=== PATIENT | female | born 1945 | race Caucasian/White ===

== ENCOUNTER 2022-01-08 12:32 | Emergency (ER) | payer MEDICARE ==
[~2022-01-08] VITALS: Ht 157.5 cm; Wt 69.9 kg
[~2022-01-08 12:32] MED LIST: FERS325 PO; PANT40TA PO
[2022-01-08] MEDS ORDERED: CYCLOBENZAPRINE HCL 10 MG TABLET PO ONE (13:30)
[2022-01-08] MEDS ORDERED: TETANUS/DIPHTHERIA TOXOID [ADULT] 0.5 ML VIAL IM ONE (13:30)
[2022-01-08] MEDS ORDERED: ACETAMINOPHEN 500 MG TABLET PO ONE (13:30)
[2022-01-08 14:09] LABS: BASOPHILS % (AUTO) 0.8 % (0.0-5.0); EOSINOPHILS % (AUTO) 5.1 % (0.0-8.0); HEMATOCRIT 40.6 % (36-48); LYMPHOCYTES % (AUTO) 25.2 % (21.0-51.0); MEAN CORPUSCULAR HGB CONC 31.8 g/dL (32.0-36.0); MEAN CORPUSCULAR VOLUME 94.4 fL (79-99); MONOCYTES % (AUTO) 9.4 % (3.0-13.0); NEUTROPHILS % (AUTO) 59.3 % (40.0-77.0); PLATELET COUNT (AUTO) 201 K/uL (130-400); WHITE BLOOD COUNT (AUTO) 6.1 K/uL (4.8-10.8)
[2022-01-08 14:22] LABS: CREATININE 0.7 mg/dL (0.5-1.5); POTASSIUM 3.9 mmol/L (3.5-5.1)
[2022-01-08 14:26] LABS: ALBUMIN 3.8 g/dL (3.5-5.0); BILIRUBIN,TOTAL 0.5 mg/dL (0.2-1.0); TOTAL PROTEIN, SERUM 7.1 g/dL (6.0-8.3)
[2022-01-08] MEDS ORDERED: CYCL10TA16 PO (14:41)
[2022-01-08] MEDS ORDERED: ACET-2247 PO (14:41)
[2022-01-08 14:57] VITALS: BP 151/61
== END 2022-01-08 15:17 | disposition home or self-care (01) ==
LOC: EDH 12:32
DX: S00.83XA Contusion of other part of head, initial encounter (principal); S16.1XXA Strain of muscle, fascia and tendon at neck level, initial encounter; I10 Essential (primary) hypertension; Z88.5 Allergy status to narcotic agent; Z79.899 Other long term (current) drug therapy; Z90.89 Acquired absence of other organs; W10.8XXA Fall (on) (from) other stairs and steps, initial encounter; Y93.89 Activity, other specified; Y92.89 Other specified places as the place of occurrence of the external cause; Y99.8 Other external cause status
CPT/HCPCS: 36415; 70450; 70486; 71045; 72125; 80053; 84484; 85025; 90471; 90714; 93005

== ENCOUNTER 2022-02-26 15:00 | Observation (INO) | payer MEDICARE ==
[~2022-02-26] VITALS: Ht 157.5 cm; Wt 69.6 kg
[2022-02-26 10:33] LABS: EOSINOPHILS % (AUTO) 4.8 % (0.0-8.0); HEMATOCRIT 42.5 % (36-48); LYMPHOCYTES % (AUTO) 34.8 % (21.0-51.0); MEAN CORPUSCULAR HEMOGLOBIN 30.1 pg (27.0-33.0); MEAN CORPUSCULAR HGB CONC 32.5 g/dL (32.0-36.0); MEAN CORPUSCULAR VOLUME 92.8 fL (79-99); MONOCYTES % (AUTO) 10.4 % (3.0-13.0); NEUTROPHILS % (AUTO) 48.8 % (40.0-77.0); PLATELET COUNT (AUTO) 206 K/uL (130-400); RED BLOOD CELL COUNT(AUTO) 4.58 MIL/uL (4.00-5.50); RED CELL DISTRIBUTION WIDTH 13.2 % (11.0-15.5); WHITE BLOOD COUNT (AUTO) 6.2 K/uL (4.8-10.8)
[2022-02-26 10:41] LABS: CREATININE 0.8 mg/dL (0.5-1.5); POTASSIUM 4.3 mmol/L (3.5-5.1)
[~2022-02-26 15:00] MED LIST changes: +AEC81 PO; +ALPRAZOLAM PO; +ATOR10 PO; +BIOT5000 PO; +CALCIUM PO; +CHROMIUM PICOLINATE PO; -FERS325 PO; +GABA-533 PO; +GINK60CA2 PO; +GLUC15006 PO; +LISI10TA24 PO; +MVIT PO; -PANT40TA PO; +POLY1GRA MC; +TRAM100T40 PO; +VITA1CAP85 PO; +VITAMIN D3 PO; +ZINC50TA71 PO
[2022-02-27] VITALS (25 sets, daily range): BP systolic 141–191; BP diastolic 49–90
[2022-02-27] MEDS: CEFAZOLIN SODIUM 1 GM VIAL IVP SCH ×2 (06:00→09:30)
[2022-02-27] MEDS ORDERED: LACTATED RINGERS 1000ML 1,000 ML IV ONE (07:05)
[2022-02-27] MEDS ORDERED: MIDAZOLAM HCL 1 MG/ML 2ML VIAL ONE ×2 (07:24→08:08)
[2022-02-27] MEDS ORDERED: LIDOCAINE PF 100MG/5ML (2%) SYRINGE 5ML ONE (08:07)
[2022-02-27] MEDS ORDERED: SUCCINYLCHOLINE CHLORIDE 20 MG/ML 10 ML VIAL ONE (08:07)
[2022-02-27] MEDS ORDERED: NEOSTIGMINE 5MG/5ML SYR IV ONE (08:08)
[2022-02-27] MEDS ORDERED: GLYCOPYRROLATE 1 MG/5 ML SYRINGE ONE (08:08)
[2022-02-27] MEDS ORDERED: ROCURONIUM 10MG/1ML SYR 10 MG/ML ML ONE (08:08)
[2022-02-27] MEDS ORDERED: PROPOFOL 10 MG/ML 20ML VIAL IV ONE (08:08)
[2022-02-27] MEDS ORDERED: DEXAMETHASONE SOD PHOSPHATE 10MG/ML 1ML VIAL ONE ×2 (08:08→08:10)
[2022-02-27] MEDS ORDERED: ONDANSETRON 4MG INJ ONE ×2 (08:08→13:09)
[2022-02-27] MEDS ORDERED: FENTANYL CITRATE PF 50 MCG/1 ML 2ML VIAL ONE ×3 (08:09→10:55)
[2022-02-27] MEDS ORDERED: ATROPINE 1MG SYG IVP ONE (08:22)
[2022-02-27] MEDS ORDERED: MIDAZOLAM HCL 1 MG/ML 2ML VIAL IVPB ONE (08:30)
[2022-02-27] MEDS ORDERED: THROMBIN-JMI 20000 UNIT KIT TP ONE (09:20)
[2022-02-27] MEDS ORDERED: BUPIVACAINE/EPI/PF 0.25% 30ML VIAL IJ ONE (09:20)
[2022-02-27] MEDS ORDERED: CEFAZOLIN SODIUM 1 GM VIAL ONE (09:20)
[2022-02-27] MEDS ORDERED: MANNITOL 20% 500ML BAG 500 ML IV ONE (09:21)
[2022-02-27] MEDS ORDERED: ARTIFICIAL TEARS 3.5 GM OINTMENT ONE (10:03)
[2022-02-27] MEDS: DEXAMETHASONE SOD PHOSPHATE 4 MG/ML 1ML VIAL IVP SCH ×2 (13:00→18:20)
[2022-02-27] MEDS ORDERED: CEFAZOLIN SODIUM 1 GM VIAL IVP SCH ×2 (13:00→17:00)
[2022-02-27] MEDS ORDERED: PROMETHAZINE HCL 25 MG/ML 1ML AMPULE IM PRN (13:00)
[2022-02-27] MEDS ORDERED: NON-FORMULARY MEDICATION 1 EACH (Tramadol HCl 100 MG) PO PRN (13:00)
[2022-02-27] MEDS ORDERED: HYDROCODONE/ACETAMINOPHEN 5/325 MG TAB PO PRN (13:00)
[2022-02-27] MEDS: LACTATED RINGERS 1000ML 1,000 ML IV SCH (13:00)
[2022-02-27] MEDS ORDERED: MORPHINE 2 MG SYG IVP PRN (13:00)
[2022-02-27] MEDS ORDERED: 0.9%NACL 10ML VIAL IVP PRN (13:00)
[2022-02-27] MEDS ORDERED: MEPERIDINE-PF 25 MG/ML SYG ONE (13:09)
[2022-02-27] MEDS ORDERED: ENALAPRILAT DIHYDRATE 1.25MG/ML 1ML VIAL IV ONE (13:09)
[2022-02-28] MEDS: DEXAMETHASONE SOD PHOSPHATE 4 MG/ML 1ML VIAL IVP SCH ×2 (00:24→06:00)
[2022-02-28] MEDS: LACTATED RINGERS 1000ML 1,000 ML IV SCH (02:20)
[2022-02-28 04:09] VITALS: BP 168/59
[2022-02-28 07:31] VITALS: BP 152/74
[2022-02-28] MEDS ORDERED: LISINOPRIL 10 MG TABLET PO SCH (09:00)
[2022-02-28] MEDS ORDERED: VITAMIN D3 2000 UNITS PO SCH (09:00)
[2022-02-28] MEDS ORDERED: ZINC 50 MG PO SCH (09:00)
[2022-02-28] MEDS ORDERED: MULTIVITAMIN TABLET PO SCH (09:00)
[2022-02-28] MEDS ORDERED: VITAMIN D3 2000 UNIT PO SCH (09:00)
[2022-02-28] MEDS ORDERED: CHROMIUM PICOLINATE 500 MCG PO SCH ×2 (09:00)
[2022-02-28] MEDS ORDERED: BIOTIN 5000 MCG PO SCH ×2 (09:00)
[2022-02-28] MEDS ORDERED: CALCIUM CARB 500MG PO SCH (09:00)
[2022-02-28] MEDS ORDERED: CALCIUM 1000 MG PO SCH (09:00)
[2022-02-28] MEDS ORDERED: VITAMIN B COMPLEX 1 CAPSULE PO SCH (09:00)
[2022-02-28] MEDS ORDERED: GLUCOSAMINE 1500 MG PO SCH (09:00)
[2022-02-28] MEDS ORDERED: POLYETHYLENE GLYCOL 3350 17 GM POWD.PACK PO SCH (09:00)
[2022-02-28] MEDS ORDERED: GINKGO BILOBA 60 MG PO SCH (09:00)
[2022-02-28] MEDS ORDERED: GLUCOSAMINE HCL 1500 MG PO SCH (09:00)
[2022-02-28] MEDS ORDERED: ATORVASTATIN 10 MG TABLET PO SCH (09:00)
[2022-02-28] MEDS ORDERED: GINKGO PO SCH (09:00)
[2022-02-28] MEDS ORDERED: GABAPENTIN 100 MG CAPSULE PO SCH (09:00)
[2022-02-28] MEDS ORDERED: ASPIRIN 81 MG EC TAB PO SCH (09:00)
[2022-02-28] MEDS ORDERED: ZINC 50MG PO SCH (09:00)
[2022-02-28] MEDS ORDERED: POLYETHYLENE GLYCOL MC SCH (09:00)
== END 2022-02-28 09:41 | disposition home or self-care (01) ==
LOC: DAHIP 02-27 05:56 → 4AH 02-27 14:22
PROVIDERS: ADMIT Neurological Surgery; ATTEND Neurological Surgery
DX: M48.02 Spinal stenosis, cervical region (principal); Z20.822 Contact with and (suspected) exposure to COVID-19; I71.4 Abdominal aortic aneurysm, without rupture; M47.12 Other spondylosis with myelopathy, cervical region; D21.9 Benign neoplasm of connective and other soft tissue, unspecified; G95.9 Disease of spinal cord, unspecified; M25.78 Osteophyte, vertebrae; Z79.899 Other long term (current) drug therapy; Z98.890 Other specified postprocedural states; Z79.82 Long term (current) use of aspirin; W01.0XXA Fall on same level from slipping, tripping and stumbling without subsequent striking against object, initial encounter; Y92.89 Other specified places as the place of occurrence of the external cause; Y93.89 Activity, other specified; Y99.8 Other external cause status
CPT/HCPCS: 20930; 22551; 22552; 22845; 22853 ×3; 36415; 72020; 80048; 85025; 87635; 96374; 96375; 96376; A4215; A4221; A4222; A4223; A4344; A4649; A4663; C1776; G0378 ×19; G0379; J0330; J0461; J0690 ×3; J1100 ×5; J2001; J2175; J2250 ×2; J2405 ×2; J2704; J2710; J3010 ×3; J3490 ×4; J7120 ×2

== ENCOUNTER → 2022-04-02 | Outpatient (CLI) | payer MEDICARE | END | disposition home or self-care (01) | LOC: RAH 08:24 | PROVIDERS: ATTEND Neurological Surgery | DX: M47.812 Spondylosis without myelopathy or radiculopathy, cervical region (principal); M43.22 Fusion of spine, cervical region | CPT/HCPCS: 72040 ==

== ENCOUNTER → 2023-01-17 | Outpatient (CLI) | payer MEDICARE | END | disposition home or self-care (01) | LOC: RAH 11:38 | PROVIDERS: ATTEND Physical Medicine & Rehabilitation | DX: M16.0 Bilateral primary osteoarthritis of hip (principal); M25.752 Osteophyte, left hip; M25.551 Pain in right hip; M25.552 Pain in left hip; Z88.5 Allergy status to narcotic agent | CPT/HCPCS: 72170; 73502; 73521 ==

== ENCOUNTER → 2023-02-12 | Outpatient (CLI) | payer MEDICARE ==
[2023-02-12 16:22] LABS: CREATININE 0.9 mg/dL (0.5-1.5)
== END | disposition home or self-care (01) ==
LOC: LAB 14:53
PROVIDERS: ATTEND Student in an Organized Health Care Education/Training Program
DX: I10 Essential (primary) hypertension (principal); I71.43 Infrarenal abdominal aortic aneurysm, without rupture
CPT/HCPCS: 36415; 82565; 84520

== ENCOUNTER → 2023-02-22 | Outpatient (CLI) | payer MEDICARE ==
[~2023-02-22] MED LIST changes: +IOHEXOL 350 MG/ML 100ML INFUS..BTL IV ONE
== END | disposition home or self-care (01) ==
LOC: RAH 09:04
PROVIDERS: ATTEND Student in an Organized Health Care Education/Training Program
DX: I71.43 Infrarenal abdominal aortic aneurysm, without rupture (principal); I70.0 Atherosclerosis of aorta
CPT/HCPCS: 75635; Q9967

== ENCOUNTER → 2024-02-20 | Outpatient (CLI) | payer MEDICARE ==
[~2024-02-20] MED LIST changes: -AEC81 PO; +ALPR0.5T8 PO; -ALPRAZOLAM PO; +AMLO-257 PO; +ASPI-1443 PO; -ATOR10 PO; +ATOR20TA65 PO; -BIOT5000 PO; -CALCIUM PO; +CHRO1000 PO; -CHROMIUM PICOLINATE PO; -GABA-533 PO; -GLUC15006 PO; -IOHEXOL 350 MG/ML 100ML INFUS..BTL IV ONE; -LISI10TA24 PO; +LISI20TA24 PO; +MULT-264 PO; -MVIT PO; -POLY1GRA MC; +VITA-427 PO; -VITA1CAP85 PO; -VITAMIN D3 PO; +ZINC50TA15 PO; -ZINC50TA71 PO; +magnesium PO; +vitamin d
== END | disposition home or self-care (01) ==
LOC: SHCH 07:56
PROVIDERS: ATTEND Student in an Organized Health Care Education/Training Program
DX: I71.40 Abdominal aortic aneurysm, without rupture, unspecified (principal)
CPT/HCPCS: 93978

== ENCOUNTER 2025-10-01 05:55 | Day surgery (SDC) | payer MEDICARE ==
[2025-09-29 11:20] VITALS: BP 164/69; PULSE 63; RESP 18; TEMP 97.7
[2025-09-29 12:20] LABS: IMMATURE GRANULOCYTE ABSOLUTE 0.03 K/uL (0-1); NUCLEATED RED BLOOD CELLS 0.0 % (0.0-0.19); PLATELET COUNT (AUTO) 226 K/uL (130-400); RED BLOOD CELL COUNT(AUTO) 4.39 MIL/uL (4.00-5.50); RED CELL DISTRIBUTION WIDTH 12.7 % (11.0-15.5); WHITE BLOOD COUNT (AUTO) 6.3 K/uL (4.8-10.8)
[2025-09-29 12:28] LABS: CREATININE 1.0 mg/dL (0.5-1.0); GLOMERULAR FILTR. RATE CALC 58.0 mL/min (>90); GLUCOSE,RANDOM 95.0 mg/dL (70-105); SODIUM SERUM 142.0 mmol/L (136-145); UREA NITROGEN, BLOOD 22.0 mg/dL (7-18)
--- NOTE | 2025-09-29 12:30 | EKG ---
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
[2025-09-29 12:38] LABS: APPEARANCE,URINE CLEAR (CLEAR); GLUCOSE, URINE (UA) NEGATIVE (NEGATIVE); LEUKOCYTE ESTERASE ,URINE MODERATE Leu/uL (NEGATIVE); NITRATE,URINE POSITIVE (NEGATIVE); OCCULT BLOOD,URINE NEGATIVE (NEGATIVE)
[2025-09-29 12:39] LABS: ADD UA MICROSCOPIC YES
[2025-09-29 12:43] LABS: SQUAMOUS EPITHELIAL CELL,UR Few /HPF (0-2)
[2025-09-29 12:57] LABS: INR 0.95 (0.85-1.15)
--- NOTE | 2025-09-30 09:45 | HMCIMG ---
EXAM: CR Chest, 1 View. CLINICAL HISTORY: PRE OPERATIVE. COMPARISON: None. FINDINGS: Patient is in slight rotation. Well-defined small subtle radiodensity in the right lower lung, probable calcified granuloma. Otherwise, lungs are clear and well expanded with no pulmonary infiltrate or pleural effusion. There is no pneumothorax. No evidence of cardiomegaly. Aortic knob calcification noted. Partly visualized orthopedic hardware in the lower cervical spine. Please correlate with the operative history. No acute osseous abnormality is seen. IMPRESSION: No acute cardiopulmonary disease is seen. /[place]
--- NOTE | 2025-09-30 11:03 | NUR ---
report reported ua and potassium to dr rhiannon arreguin. ok to proceed and he will pretreat pt. md also informed of cxr will wait for response Addendum: 09/30/25 at 1612 by AXEL PHAN RN RN OK TO PROCEED PER DR RHIANNON ARREGUIN
[2025-10-01] VITALS (10 sets, daily range): BP systolic 111–150; BP diastolic 44–62; PULSE 48–63; RESP 8–19; TEMP 97.2–98.1
[~2025-10-01] VITALS: Ht 157.5 cm; Wt 68.8 kg
[~2025-10-01 05:55] MED LIST changes: -ALPR0.5T8 PO; -ASPI-1443 PO; -ATOR20TA65 PO; +ATOR40TA71 PO; +CALC-1038 PO; -CHRO1000 PO; -GINK60CA2 PO; +IBUP-2076 PO; -LISI20TA24 PO; +LISI40TA15 PO; +MAGN400T51 PO; -TRAM100T40 PO; +TRAM100T56 PO; -ZINC50TA15 PO; +ZINC50TA84 PO; +[UNRECOGNIZED DRUG - CODE] PO; -magnesium PO
[2025-10-01] MEDS: 0.9%NACL 1000ML 1,000 ML IV SCH (06:37)
[2025-10-01] MEDS ORDERED: IOHEXOL 350 MG/ML 100ML INFUS..BTL IV ONE (07:15)
[2025-10-01] MEDS ORDERED: LIDOCAINE HCL 400MG/20ML VIAL ONE (07:15)
[2025-10-01] MEDS ORDERED: VERAPAMIL HCL 2.5 MG/ML VIAL ONE (07:15)
[2025-10-01] MEDS ORDERED: NITROGLYCERIN 50MG VIAL ONE (07:16)
[2025-10-01] MEDS ORDERED: HEParin-NS 1,000 UNIT/500 ML 1,000 ML IV ONE (07:16)
[2025-10-01] MEDS ORDERED: MIDAZOLAM HCL 1 MG/ML 2ML VIAL ONE ×3 (07:34→08:23)
--- NOTE | 2025-10-01 09:27 | PRN ---
PROCEDURE REPORT DATE OF PROCEDURE: Oct 01, 2025 MILL ROLL OPERATOR: [ Chepe Knapp MD] PROCEDURE PERFORMED: Conscious sedation Ultrasound guided right radial artery access Selective left coronary artery angiogram Selective right coronary artery angiogram Left heart catheterization IVUS of LAD and Left Main TR band 13 derick over right radial artery INDICATION: Abnormal CCTA DESCRIPTION OF PROCEDURE: After informed consent was obtained, the patient was prepped and draped in the usual sterile fashion. A 6 [place] arterial sheath was inserted in the right radial artery using ultrasound guidance with first pass wall puncture. The arterial sheath was aspirated and flushed. A 6 [place] JL 3.5 was then advanced to the ascending aorta over an exchange length J-tip guidewire, was aspirated and flushed, and was used for selective coronary angiograms in multiple obliqu ities. A JR-4 was advanced in a similar fashion to the ascending aorta over the J-tipped guidewire and was used for selective right coronary angiograms in multiple oblique views with findings as outlined below. The JR-4 catheter advanced into the LV and pressures were obtained with a pull-back across the aortic valve. Following review of the images there was concern of the distal left main stenosis and proximal LAD. At this time we exchanged the diagnostic catheters for a six [place] XB three guide catheter which was advanced over the wire into the ascending aorta and used to engage the left main coronary artery. Following therapeutic ACT we advanced a [place] into the distal LAD under fluoroscopic guidance. We then proceeded with IVUS imaging of the LAD and left main to delineate lesion morphology and characteristics. Following review of the images decision was made to terminate the procedure and consult CV surgery. During the procedure case was discussed with CV surgery and will plan for outpt eval. A TR band was placed over right radial artery. Patient tolerated procedure well with no postprocedural complications FLUOROSCOPY TIME: 7.9 min LEFT HEART HEMODYNAMICS: LVEDP 9 mm Hg and no gradient Ao CORONARY ANGIOGRAM: LEFT MAIN: Calcified with distal 75% stenosis by IVUS imaging (MLA 5.4mm2). Gives rise to LCx and LAD. LEFT ANTERIOR DESCENDING: Large vessel giving rise to two Diagonal branches. Calcified with 70-80% proximal stenosis by IVUS and 20-30% mid LAD stenosis just after the first septa l artery with ANIYAH 3 flow. Diag are calcified and patent LEFT CIRCUMFLEX: Large and gives rise to two OM branches. Calcified with no obstructive disease. . RIGHT CORONARY ARTERY: Large, dominant vessel giving rise to PDA and PL branches. 70-80% proximal and 20-30% mid-distal stenosis. PDA and PLB are patent with mild diffuse disease. HEMOSTASIS: TR band 12 derick over right radial artery INTERVENTIONS: IVUS of Left main and LAD COMPLICATIONS: None FINDINGS: Normal coronary anatomy and severe multivessel CAD with distal LM involvement (MLA 5.4mm2) ESTIMATED BLOOD LOSS: 5 cc RECOMMENDATIONS/INSTRUCTIONS: Aggressive risk factor modification. Consult CV surgery for CABG eval Follow up 1-2 weeks post DC CONTRAST DELIVERED TO PATIENT (mL): 80cc MD KALLIE Phillips JAMES R MD Oct 01, 2025 09:27
[2025-10-01] MEDS ORDERED: DEXTROSE 50%-WATER 50 ML DISP.SYRIN IV PRN (09:30)
[2025-10-01] MEDS ORDERED: 0.9%NACL 1000ML 1,000 ML IV SCH (09:30)
[2025-10-01] MEDS ORDERED: GLUCAGON 1MG KIT 1 MG ML IM PRN (09:30)
--- NOTE | 2025-10-01 11:23 | NUR ---
URINARY: VOIDED ABOUT 500CC CLEAR YELLOW COLOR URINE VIA BEDPAN WITHOUT DIFFICULTY.
--- NOTE | 2025-10-01 12:50 | NUR ---
TR BAND: TR BAND REMOVED WITH NO ACTIVE BLEEDING PRESENT. CLEANSED AREA WITH CHLORAPREP FOLLOWED BY APPLYING STERILE 2X2 GAUZE THAN 2X2 TEGADERM. NO REDNESS/SWELLING NOTED TO SURROUNDING AREA RT WRIST.
[2025-10-02] MEDS ORDERED: ASPIRIN 81MG CHEW TAB PO SCH (09:00)
== END 2025-10-01 13:10 | disposition home or self-care (01) ==
LOC: DAH 05:55
PROVIDERS: ATTEND Student in an Organized Health Care Education/Training Program
DX: R94.39 Abnormal result of other cardiovascular function study (principal); I25.118 Atherosclerotic heart disease of native coronary artery with other forms of angina pectoris; I10 Essential (primary) hypertension; E78.5 Hyperlipidemia, unspecified; I71.43 Infrarenal abdominal aortic aneurysm, without rupture; M54.2 Cervicalgia; Z98.42 Cataract extraction status, left eye; Z98.41 Cataract extraction status, right eye; Z88.5 Allergy status to narcotic agent; Z82.49 Family history of ischemic heart disease and other diseases of the circulatory system; Z79.01 Long term (current) use of anticoagulants; Z79.899 Other long term (current) drug therapy
CPT/HCPCS: 80048; 83880; 85025; 85610; 85730; 87086; 81001; 36415; 71045; 93005; 93458; 92978; 92979; 99156; 99157 ×3; 85347; C1769 ×2; C1894; C1887; C1753; Q9965 ×2; J1200; J3010 ×2; J3490 ×3; J7030; J1644 ×2; J2250 ×3; Q9967; A4215; A4335; A4222; A6260; A4221; A4663; A4216; A6206; A4223 ×3; A4554; 96360; 96361